=== PATIENT | female | born 1965 | race Caucasian/White ===

== ENCOUNTER 2017-06-21 12:13 | Outpatient (CLI) | payer OTHER ==
--- NOTE | 2017-06-21 15:02 | XRAY Report ---
EXAM: CERVICAL SPINE RADIOGRAPHY EXAM DATE: 06/21/2017 12:34 PM. CLINICAL HISTORY: Pain. COMPARISONS: None. TECHNIQUE: 5 views, including oblique views. FINDINGS: Alignment: Mild scoliosis. Straightening of cervical lordosis with reversal of curve at C3-C4. No lis thesis. Bones: The cervical vertebral bodies and posterior elements are well-visualized from the skull base t hrough C7-T1. No fractures or bone lesions. Disks: Mild disk space narrowing at C3-C4 and C4-C5. Other disk spaces preserved. Facets: Generalized degenerative changes, right more than left, including prominent uncovertebral nathen nt disease at C4-C5. Neural Foramina: Narrowing on the right at C4-C5 and to lesser degree at C5-C6. Soft Tissues: Normal. No prevertebral soft tissue swelling. The visualized lung apices are clear. IMPRESSION: 1. Straightening with curve reversal. 2. Degenerative changes with neural foraminal narrowing on the right. [facility] Referring Provider Line: [phone] SITE ID: [id number]
== END 2017-06-21 12:14 | disposition home or self-care (01) ==
LOC: DI 12:13
PROVIDERS: ATTEND Internal Medicine
DX: M47.892 Other spondylosis, cervical region (principal)
CPT/HCPCS: 72050

== ENCOUNTER 2018-11-28 11:43 | Outpatient (CLI) | payer OTHER ==
--- NOTE | 2018-11-29 11:31 | Mammography Report ---
Reason: SCREENING MAMMO FOR BREAST CA Procedure Date: 11/28/2018 Accession Number: [id number] / [id number] Procedure: MGN - Screening Mammo Dig Bilat CPT Code: FULL RESULT: EXAM: Screening Mammo Dig Bilat DATE: 11/28/2018 12:16 PM CLINICAL HISTORY: Routine screening. No reported personal or family history of breast cancer. TECHNIQUE: Bilateral CC and MLO views were obtained. COMPARISON: 06/15/2011, 10/03/2008 FINDINGS: The breasts demonstrate heterogeneously dense fibroglandular parenchyma bilaterally. Right breast: On the right cc view only, there is a mostly circumscribed/partially obscured 7 mm equal density oval mass/asymmetry, lateral breast 4.5 cm from the nipple. There are no suspicious calcifications or areas of distortion. Left breast: There are no suspicious masses, calcifications or areas of distortion. IMPRESSION: Right breast: 7 mm one view finding lateral right breast as described. Incomplete. BI-RADS Category 0. Additional imaging and possible ultrasound is recommended. Left breast: Negative. BI-RADS Category 1. Recommend annual screening mammography. BI-RADS CATEGORY 0: Incomplete examination STANDARD QUALIFYING STATEMENTS: 1. This examination was reviewed with the aid of Computer-Aided Detection (CAD). 2. A negative or benign imaging report should not preclude biopsy if clinically suspicious findings are present. 3. Dense breasts may obscure an underlying neoplasm. 4. This examination was reviewed without the aid of 3D breast imaging (tomosynthesis).
== END 2018-11-28 11:44 | disposition home or self-care (01) ==
LOC: DI.N 11:43
PROVIDERS: ATTEND Physician Assistant Medical
DX: Z12.31 Encounter for screening mammogram for malignant neoplasm of breast (principal); R92.8 Other abnormal and inconclusive findings on diagnostic imaging of breast
CPT/HCPCS: 77067

== ENCOUNTER 2019-01-02 10:28 | Outpatient (CLI) | payer OTHER ==
--- NOTE | 2019-01-02 11:52 | Mammography Report ---
Reason: ABNORMAL MAMMOGRAM Procedure Date: 01/02/2019 Accession Number: [id number] / [id number] Procedure: MAXIMUS - Diag Special Views Dig RT CPT Code: FULL RESULT: EXAM: Diag Special Views Dig RT DATE: 01/02/2019 11:02 AM CLINICAL HISTORY: Patient returns for additional imaging of a possible small breast asymmetry in the lateral hemisphere right breast seen only on CC view. TECHNIQUE: (R) - Right CC and MLO views were obtained. In addition, 3-D mammography was performed of the right breast. COMPARISON: 11/28/2018, 06/15/2011 PARENCHYMAL PATTERN: (A) - The breasts demonstrate scattered fibroglandular densities bilaterally. FINDINGS: Additional imaging including 3-D tomography reveals no breast asymmetry in the lateral hemisphere right breast. There are no suspicious masses, calcifications, or areas of distortion. IMPRESSION: Negative examination. BI-RADS category 1. RECOMMENDATION: (ANNUAL) - Recommend routine annual screening mammography. BI-RADS CATEGORY (1) - Negative. STANDARD QUALIFYING STATEMENTS: 1. This examination was not reviewed with the aid of Computer-Aided Detection (CAD). 2. A negative or benign imaging report should not preclude biopsy if clinically suspicious findings are present. 3. Dense breasts may obscure an underlying neoplasm. 4. This examination was reviewed with the aid of 3D breast imaging (tomosynthesis).
== END 2019-01-02 10:29 | disposition home or self-care (01) ==
LOC: DI 10:28
PROVIDERS: ATTEND Internal Medicine
DX: R92.8 Other abnormal and inconclusive findings on diagnostic imaging of breast (principal)

== ENCOUNTER 2019-10-18 20:05 | Outpatient (CLI) | payer OTHER ==
--- NOTE | 2019-10-19 04:38 | XRAY Report ---
Reason: Neck pain Procedure Date: 10/18/2019 Accession Number: [id number] / [id number] Procedure: XR - Cervical Spine 2 View CPT Code: Final Report FULL RESULT: EXAM: CERVICAL SPINE RADIOGRAPHY EXAM DATE: 10/18/2019 08:24 PM. CLINICAL HISTORY: Neck pain. COMPARISONS: CERVICAL SPINE COMPLETE 06/21/2017 12:22 PM. TECHNIQUE: 3 views. FINDINGS: Alignment: There is slight reversal of the usual cervical lordosis, as before. Bones: The cervical vertebral bodies and posterior elements are well visualized from the skull base through C7-T1. No fractures or bone lesions. Disks: Disk height loss is again noted at C4-C5 and to a lesser extent at C3-C4 and C5-C6. There is associated endplate osteophytosis primarily at the C4-C5 level. Appearance is not definitely changed. Facets: Facet degenerative changes appear similar to the prior radiographs. Soft Tissues: Normal. No prevertebral soft tissue swelling. The visualized lung apices are clear. IMPRESSION: 1. No evidence of acute pathology in the cervical spine. 2. No significant interval change in mild cervical spondylosis. [facility]
--- NOTE | 2019-10-19 09:21 | XRAY Report ---
Reason: Right shoulder pain Procedure Date: 10/18/2019 Accession Number: [id number] / [id number] Procedure: XR - Shoulder 3 View RT CPT Code: Final Report FULL RESULT: EXAM: RIGHT SHOULDER RADIOGRAPHY, 3 VIEWS EXAM DATE: 10/18/2019 08:24 PM. CLINICAL HISTORY: Right shoulder pain, chronic, for 4 months in a 54-year-old female. No known trauma. COMPARISON: Right shoulder radiographic study of 02/24/2011 10:35 AM. TECHNIQUE: AP, Grashey and Y views. FINDINGS: Bones: Normal. No fracture or bone lesion. Joints: The glenohumeral and acromioclavicular joints are normal. Soft tissues: The visualized hemithorax is unremarkable. No soft tissue swelling. Other: Visualized portion of the right chest unremarkable. IMPRESSION: Normal right shoulder radiographic studies, unchanged from earlier exam of February 2011. No demonstrated cause for acute or chronic shoulder pain. [facility]
== END 2019-10-18 20:06 | disposition home or self-care (01) ==
LOC: DI 20:05
PROVIDERS: ATTEND Physician Assistant
DX: M25.511 Pain in right shoulder (principal); M50.321 Other cervical disc degeneration at C4-C5 level; M47.812 Spondylosis without myelopathy or radiculopathy, cervical region
CPT/HCPCS: 72040

== ENCOUNTER 2022-03-04 14:29 | Outpatient (CLI) | payer OTHER ==
--- NOTE | 2022-03-05 09:12 | Ultrasound Report ---
PROCEDURE: Ext Limited Non Vascular INDICATIONS: 2 THIGH MASSES TECHNIQUE: Real-time scanning was performed of the right thigh in the area of interest, with image d ocumentation. COMPARISON: None. FINDINGS: Ultrasound was performed in the area of interest within the right thigh. 2 subcutaneous masses are present in the medial aspect of the right thigh measuring 1.9 x 0.9 x 1.8 c m and 1.5 x 0.8 x 1.4 cm, respectively. Both demonstrate similar echotexture to adjacent subcutaneous fat, most likely lipomas. IMPRESSION: 2 lipomatous masses in the medial aspect of the right thigh correlating with the palpabl e masses. Reviewed by: Chen Toure MD on 03/05/2022 9:11 AM PDT Approved by: Chen Toure MD on 03/05/2022 9:11 AM PDT Station ID: [id number]
== END 2022-03-04 14:30 | disposition home or self-care (01) ==
LOC: DI 14:29
PROVIDERS: ATTEND Physician Assistant
DX: D17.23 Benign lipomatous neoplasm of skin and subcutaneous tissue of right leg (principal)